=== PATIENT | male | born 1990 | race American Indian/Alaskan Native ===

== ENCOUNTER 2017-02-07 20:25 | Emergency (ER) | payer OTHER ==
[2017-02-07] MEDS ORDERED: XYLOCAINE 2% INFILTRATI ONE ×2 (22:16→22:45)
[2017-02-07] MEDS ORDERED: TRIPLE ANTIBIOTIC TP ONE ×2 (23:25→23:27)
--- NOTE | 2017-02-07 23:59 | Emergency Department Report ---
ED Upper Extremity Inj HPI - General Chief Complaint: Extremity Injury, Upper Stated Complaint: RT INDEX FINGER PAIN Time Seen by Provider: 02/07/17 21:41 Source: patient Mode of arrival: Ambulatory Limitations: No Limitations - History of Present Illness Initial Comments: This is a 26 y.o. male presents with injury to index finger of right hand. Patient states he slammed hand in a car door 3 days ago. He went to Urgent Care and they tried to release pressure via cautery with no improvement. Patient states he did not see anything drain in office or home. Swelling and pain is worse. Pain is 10/10 on pain scale. Denies numbness, tingling, or discharge. MD Complaint: Injury to:: hand (index finger to right hand) -: days(s) (3) Other Extremity Injury: Fingers: Right (index finger nail) Other Injuries: none Handedness: right Place: outdoors Severity scale (0 -10): 10 Improves With: cold therapy Worsens With: movement of extremity (and touch) Context: direct blow (slammed hand in car, nonintentional) Associated Symptoms: denies other symptoms. denies: weakness, numbness, neck pain, suspects foreign body, nausea/vomiting, heard/felt popping sensat Treatments Prior to Arrival: cold therapy, NSAIDS - Related Data Allergies Allergy/AdvReac Type Severity Reaction Status Date / Time amoxicillin [From Augmentin] Allergy Swelling Verified 02/07/17 20:56 clavulanic acid Allergy Swelling Verified 02/07/17 20:56 [From Augmentin] ED Review of Systems ROS: Stated complaint: RT INDEX FINGER PAIN Other details as noted in HPI Constitutional: no symptoms reported, see HPI. denies: chills, diaphoresis, fever, malaise, weakness Respiratory: no symptoms reported, see HPI. denies: cough, orthopnea, shortness of breath, SOB with exertion, SOB at rest, stridor, wheezing Cardiovascular: as per HPI. denies: chest pain, palpitations, dyspnea on exertion, orthopnea, edema, syncope, paroxysmal nocturnal dyspnea Gastrointestinal: as per HPI. denies: abdominal pain, nausea, vomiting, diarrhea, constipation, hematemesis, melena, hematochezia Musculoskeletal: as per HPI. denies: back pain, joint swelling, arthralgia Skin: as per HPI, change in hair/nails. denies: rash, lesions, change in color , pruritus Neurological: as per HPI. denies: headache, weakness, numbness, paresthesias, confusion, abnormal gait, vertigo Psychiatric: as per HPI. denies: anxiety, depression, auditory hallucinations, visual hallucinations, homicidal thoughts, suicidal thoughts ED Past Medical Hx - Past Medical History Previous Medical History?: No - Surgical History Past Surgical History?: Yes Additional Surgical History: bilater ACL replaced,VIVEK in right hand - Social History Smoking Status: Current Some Day Smoker Substance Use Type: Alcohol ED Physical Exam - General Limitations: No Limitations General appearance: alert, in no apparent distress - Respiratory Respiratory exam: Present: normal lung sounds bilaterally. Absent: respiratory distress, wheezes, rales, rhonchi, stridor, chest wall tenderness, accessory muscle use, decreased breath sounds, prolonged expiratory - Cardiovascular Cardiovascular Exam: Present: regular rate, normal rhythm, normal heart sounds. Absent: bradycardia, tachycardia, irregular rhythm, systolic murmur, diastolic murmur, rubs, gallop, clicks, JVD, S3, S4 - GI/Abdominal GI/Abdominal exam: Present: soft, normal bowel sounds. Absent: distended, tenderness, guarding, rebound, rigid, hyperactive bowel sounds, hypoactive bowel sounds, organomegaly, mass, bruit, pulsatile mass, hernia - Extremities Exam Extremities exam: Present: full ROM, normal capillary refill. Absent: pedal edema, joint swelling, calf tenderness - Expanded Upper Extremity Exam Right General: Present: normal inspection, nail injury (#) (1). Absent: laceration, abrasion, foreign body, amputation, avulsion Shoulder Exam: Present: normal inspection, full ROM. Absent: tenderness, swelling, abrasion, laceration, ecchymosis, deformity, crepidus, dislocation, erythema, tenderness over AC joint Upper Arm exam: Present: normal inspection, full ROM. Absent: tenderness, swelling, abrasion, laceration, ecchymosis, deformity, crepidus, dislocation, erythema Elbow exam: Present: normal inspection, full ROM. Absent: tenderness, swelling , abrasion, laceration, ecchymosis, deformity, crepidus, dislocation, erythema, effusion, pain w/ pronation/supination, tenderness over radial head Forearm Wrist exam: Present: normal inspection, full ROM. Absent: tenderness, swelling, abrasion, laceration, ecchymosis, deformity, crepidus, dislocation, erythema, tenderness over anatomical snuff box, pain with axial thumb loading Hand Wrist exam: Present: full ROM, tenderness, swelling, dislocation, subungual hematoma (tip of 1st digit, discoloration, and swelling). Absent: abrasion, laceration, ecchymosis, deformity, crepidus, erythema, amputation, nail avulsion - Skin Skin exam: Present: warm, dry, intact, normal color. Absent: rash, erythema, urticaria, vesicles, petechiae, pallor, abrasion, ecchymosis ED Course Vital Signs 02/07/17 20:52 Temperature 98.2 F Pulse Rate 106 H Respiratory 18 Rate Blood Pressure 124/92 O2 Sat by Pulse 98 Oximetry Critical care attestation.: If time is entered above; I have spent that time in minutes in the direct care of this critically ill patient, excluding procedure time. ED Disposition Clinical Impression: Subungual hematoma of right index finger Disposition: TO HOME OR SELFCARE Is pt being admited?: No Does the pt Need Aspirin: No Condition: Stable Instructions: Subungual Hematoma (ED) Additional Instructions: Continue taking keflex antibiotic as prescribed from urgent care. Use ibuprofen or naproxen for pain control. Keep your right index finger dry. Gently trim your nail if begins to fall off in pieces. Return to ER or primary care provider if you see increased redness, swelling, pus, bad smell, or pain. Referrals: RUBIO LEONARD MD [Primary Care Provider] - 3-5 Days [facility] [Outside] - 3-5 Days [facility] [Outside] - 3-5 Days Time of Disposition: 00:17 Print Language: LIBERIAN
[2017-02-08 00:30] VITALS: BP 128/89
== END 2017-02-08 00:30 | disposition home or self-care (01) ==
LOC: ED 20:25
DX: S60.121A Contusion of right index finger with damage to nail, initial encounter (principal); W23.0XXA Caught, crushed, jammed, or pinched between moving objects, initial encounter; Y93.89 Activity, other specified; Y92.89 Other specified places as the place of occurrence of the external cause; Y99.8 Other external cause status; F17.200 Nicotine dependence, unspecified, uncomplicated; Z88.1 Allergy status to other antibiotic agents; Z88.8 Allergy status to other drugs, medicaments and biological substances
CPT/HCPCS: 99282; 99283; A6250